=== PATIENT | female | born 1960 | race Caucasian/White ===

== ENCOUNTER 2018-04-20 05:20 | Emergency (ER) | payer OTHER ==
[~2018-04-20] VITALS: Ht 157.5 cm; Wt 89.5 kg
[2018-04-20 07:53] VITALS: BP 130/90
== END 2018-04-20 07:53 | disposition home or self-care (01) ==
LOC: ED 05:20
DX: S56.311A Strain of extensor or abductor muscles, fascia and tendons of right thumb at forearm level, initial encounter (principal); S13.4XXA Sprain of ligaments of cervical spine, initial encounter; S20.219A Contusion of unspecified front wall of thorax, initial encounter; V49.88XA Car occupant (driver) (passenger) injured in other specified transport accidents, initial encounter; Y93.I9 Activity, other involving external motion; Y92.413 State road as the place of occurrence of the external cause; Y99.8 Other external cause status
CPT/HCPCS: Q0092

== ENCOUNTER 2019-10-04 20:49 | Emergency (ER) | payer OTHER ==
[~2019-10-04] VITALS: Ht 157.5 cm; Wt 88.5 kg
[2019-10-04 20:59] VITALS: Ht 157.5 cm; Wt 88.5 kg
[2019-10-04 22:47] VITALS: BP 136/78
== END 2019-10-04 22:47 | disposition home or self-care (01) ==
LOC: ED 20:49
DX: L50.9 Urticaria, unspecified (principal)
CPT/HCPCS: J7512; Q0163